=== PATIENT | male | born 1950 | race Caucasian/White ===

== ENCOUNTER 2017-05-05 09:50 | Emergency (ER) | payer MEDICAID ==
[2017-05-05] MEDS ORDERED: ONDANSETRON 4 MG/2 ML VIAL ONE (09:55)
[2017-05-05] MEDS ORDERED: ONDANSETRON 4 MG/2 ML VIAL IVP ONE (09:56)
[2017-05-05] MEDS ORDERED: NS 1,000 ML IV ONE (10:00)
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
[2017-05-05] MEDS ORDERED: fentaNYL 100 MCG/2 ML INJ ONE (10:13)
[2017-05-05 10:18] LABS: % IMMATURE GRANULYOCYTES 0.2 % (0.0-1.1); ABSOLUTE IMMATURE GRANULOCYTES 0.01 10^3/uL (0.00-0.10); ADD DIFF? NO; ADD MORPH? NO; ADD SCAN? NO; ATYPICAL LYMPHOCYTE FLAG 30 (0-99); FRAGMENT RBC FLAG 0 (0-99); HEMATOCRIT 42.1 % (40.0-51.0); HEMOGLOBIN 14.4 g/dL (13.7-17.5); LEFT SHIFT FLG 0 (0-99); LIPEMIA HEMOLYSIS FLAG 90 (0-99); MEAN CELL HEMOGLOBIN 33.1 pg (27.9-34.1); MEAN CELL HEMOGLOBIN CONCENTR. 34.2 g/dL (32.4-36.7); MEAN CELL VOLUME 96.8 fL (81.5-99.8); MEAN PLATELET VOLUME 9.9 fL (8.7-11.7); PLATELET CLUMPS FLAG 0 (0-99); PLATELET COUNT 245 10^3/uL (150-400); RED BLOOD CELL COUNT 4.35 10^6/uL (4.40-6.38); RED CELL DISTRIBUTION WIDTH 13.7 % (11.5-15.2)
[2017-05-05] MEDS ORDERED: fentaNYL 100 MCG/2 ML INJ IVP ONE (10:25)
[2017-05-05 10:29] LABS: APTT 24.9 SEC (23.0-38.0); INR 1.02 (0.83-1.16); PROTIME(PATIENT) 13.3 SEC (12.0-15.0)
[2017-05-05 10:32] LABS: ANION GAP 11 mEq/L (8-16); CALCIUM 9.6 mg/dL (8.5-10.4); CARBON DIOXIDE 28 mEq/l (22-31); CHLORIDE 102 mEq/L (97-110); ETHANOL SERUM < 10 mg/dL (0-10); GLOMERULAR FILTRATION RATE > 60; GLUCOSE 83 mg/dL (70-100); POTASSIUM 4.2 mEq/L (3.5-5.2); SODIUM 141 mEq/L (134-144)
[2017-05-05] MEDS ORDERED: ceFAZolin 2 GM/DEXTROSE 100 ML IV ONE (10:44)
[2017-05-05] MEDS ORDERED: TDAP ADULT 0.5 ML INJ (BOOSTRIX) IM ONE (10:45)
[2017-05-05] MEDS ORDERED: [UNRECOGNIZED DRUG - OTHER] IM ONE (10:45)
[2017-05-05] MEDS ORDERED: PNEUMOCOCCAL 0.5ML VACCINE VIAL IM ONE (10:45)
[2017-05-05] MEDS ORDERED: HAEMOPH B POLY CONJ-TET TOX/PF 0.5 ML VIAL IM ONE (10:45)
[2017-05-05] MEDS ORDERED: SKIN ADHESIVE (DERMABOND) 1 EACH TP ONE (10:55)
--- NOTE | 2017-05-05 11:02 | CPEKG ---
Heart Rate: 56 RR Interval: 1071 P-R Interval: 204 QRSD Interval: 118 QT Interval: 416 QTC Interval: 402 P Climax: 73 QRS Climax: 49 T Wave Climax: 50 EKG Severity - ABNORMAL ECG - EKG Impression: SINUS RHYTHM EKG Impression: NONSPECIFIC INTRAVENTRICULAR CONDUCTION DELAY Electronically Signed By: Chava Cunningham 05-May-2017 11:49:04
[2017-05-05] MEDS ORDERED: MENINGOCOCCAL 4 MCG/0.5 ML VIAL (MENACTRA) IM ONE (11:30)
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
[2017-05-05] MEDS ORDERED: IBUPROFEN 600 MG TAB PO ONE ×2 (12:35→12:38)
[2017-05-05 12:58] VITALS: BP 154/91; PULSE 60; RESP 16; TEMP 98.2; O2SAT 96
== END 2017-05-05 12:56 | disposition home or self-care (01) ==
LOC: EDUNIT#
PROC: 0HQ1XZZ Repair Face Skin, External Approach (ICD-10-PCS; principal; 2017-05-05)
DX: S02.40FA Zygomatic fracture, left side, initial encounter for closed fracture (principal); S01.112A Laceration without foreign body of left eyelid and periocular area, initial encounter; E86.9 Volume depletion, unspecified; Z23 Encounter for immunization; Z87.891 Personal history of nicotine dependence; V18.4XXA Pedal cycle driver injured in noncollision transport accident in traffic accident, initial encounter
CPT/HCPCS: 82947-QW; 96365; G0480; J0690; J2405; J3010

== ENCOUNTER 2018-03-22 16:49 | Inpatient (IN) | payer OTHER, MEDICAID ==
--- NOTE | 2018-03-22 17:07 | EDPHY ---
H & P Stated Complaint: L facial swelling Time Seen by Provider: 03/22/18 17:06 HPI/ROS: CHIEF COMPLAINT: Facial swelling HISTORY OF PRESENT ILLNESS: The patient presents to the ED with left facial swelling not improved after amoxicillin. The patient reportedly developed his symptoms 5-6 days ago. He saw his dentist on Tuesday who prescribed penicillin VK for possible odontogenic infection. He was seen today at his primary care provider's office and referred to the ED for further evaluation. The patient denies any headache, acute numbness or weakness. 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 REVIEW OF SYSTEMS: A comprehensive 10 point review of systems is otherwise negative aside from elements mentioned in the history of present illness. Source: Patient Exam Limitations: No limitations - Personal History Current Tetanus/Diphtheria Vaccine: Unsure Current Tetanus Diphtheria and Acellular Pertussis (TDAP): Unsure - Medical/Surgical History Hx Asthma: No Hx Chronic Respiratory Disease: No Hx Diabetes: No Hx Cardiac Disease: No Hx Renal Disease: No Hx Cirrhosis: No Hx Alcoholism: No Hx HIV/AIDS: No Hx Splenectomy or Spleen Trauma: Yes Other PMH: traumatic brain injury, - Social History Smoking Status: Former smoker - Physical Exam Exam: General Appearance: Alert, no distress Head: Normocephalic, facial swelling over the left parotid gland Eyes: Pupils equal and round no pallor or injection ENT, Mouth: Mucous membranes moist, trismus noted, the patient's left mandibular molars and premolars are absent. Small area of erythema and tenderness noted posterior to left mandibular canine Respiratory: There are no retractions, lungs are clear to auscultation Cardiovascular: Regular rate and rhythm Gastrointestinal: Abdomen is soft and nontender, no masses, bowel sounds normal Neurological: A&O, normal motor function, normal sensory exam, normal cranial nerves Skin: Warm and dry, no rashes Musculoskeletal: Neck is supple nontender Extremities: symmetrical, full range of motion Constitutional: Initial Vital Signs Temperature (C) 36.9 C 03/22/18 16:56 Heart Rate 83 03/22/18 16:56 Respiratory Rate 16 03/22/18 16:56 Blood Pressure 115/80 03/22/18 16:56 O2 Sat (%) 93 03/22/18 16:56 O2 Delivery Mode Room Air Allergies/Adverse Reactions: No Known Allergies Allergy (Verified 03/22/18 16:55) Home Medications: Medication Instructions Recorded No Medications [NO HOME 0 ea [facility] [place] MEDICATIONS] Penicillin VK 03/22/18 Medical Decision Making - Diagnostics Imaging Results: Imaging Impressions Face CT 03/22/18 17:29 Impression: 1. Longitudinal fluid collection tracking along the anterior surface of the left mandibular body, and extending superiorly into the anterior aspect of the left masseter muscle, imaging features compatible with abscess. There is focal bone resorption around the roots of the left 4th incisor potentially related to tooth abscess. 2. A 10-mm calculus present deep to the right mandible potentially related to submandibular duct calculus. Results called to Shaun Shepherd M.D., at 6:20 p.m. ED Course/Re-evaluation: The patient presents to the ED for evaluation of 5 days of progressive facial swelling. The patient has had most of his left mandibular molars removed. The patient has marked pain, swelling and tenderness with trismus noted in the ED. The patient was taken for CT scan of the face which demonstrates a large facial abscess along the left mandible/masseter muscle. The patient had an IV established. He received 3 g of Unasyn. Consultation was made with Dr. Reilly from oral surgery who will evaluate the patient in the ER this evening. The patient will be admitted to the hospitalist service. As discussed the case with Dr. Lua, the on-call hospitalist, who will admit the patient this evening. The patient has been kept NPO in the emergency department. His last p.o. Intake was at 12:00 p.m. today. Differential Diagnosis: Differential diagnosis considered includes facial abscess, parotid gland infection, submandibular abscess, retropharyngeal abscess - Data Points Laboratory Results: Laboratory Results 03/22/18 17:20 03/22/18 03/22/18 17:23 17:20 WBC 11.18 10^3/uL H 10^3/uL (3.80-9.50) RBC 4.44 10^6/uL 10^6/uL (4.40-6.38) Hgb 14.5 g/dL g/dL (13.7-17.5) POC Hgb 16.0 gm/dL gm/dL (13.7-17.5) Hct 40.6 % % (40.0-51.0) POC Hct 47 % % (40-51) MCV 91.4 fL fL (81.5-99.8) MCH 32.7 pg pg (27.9-34.1) MCHC 35.7 g/dL g/dL (32.4-36.7) RDW 13.5 % % (11.5-15.2) Plt Count 221 10^3/uL 10^3/uL (150-400) MPV 10.3 fL fL (8.7-11.7) Neut % (Auto) 79.8 % H % (39.3-74.2) Lymph % (Auto) 8.1 % L % (15.0-45.0) [place] % (Auto) 10.5 % % (4.5-13.0) Eos % (Auto) 0.7 % % (0.6-7.6) Baso % (Auto) 0.4 % % (0.3-1.7) Nucleat RBC Rel Count 0.0 % % (0.0-0.2) Absolute Neuts (auto) 8.93 10^3/uL H 10^3/uL (1.70-6.50) Absolute Lymphs (auto) 0.90 10^3/uL L 10^3/uL (1.00-3.00) Absolute Monos (auto) 1.17 10^3/uL H 10^3/uL (0.30-0.80) Absolute Eos (auto) 0.08 10^3/uL 10^3/uL (0.03-0.40) Absolute Basos (auto) 0.04 10^3/uL 10^3/uL (0.02-0.10) Absolute Nucleated RBC 0.00 10^3/uL 10^3/uL (0-0.01) Immature Gran % 0.5 % % (0.0-1.1) Immature Gran # 0.06 10^3/uL 10^3/uL (0.00-0.10) POC Sodium 132 mEq/L L mEq/L (135-145) POC Potassium 4.4 mEq/L mEq/L (3.3-5.0) POC Chloride 99 mEq/L mEq/L (97-110) POC BUN 25 mg/dL H mg/dL (7-23) POC Creatinine 0.9 mg/dL mg/dL (0.7-1.3) POC Glucose 108 mg/dL H mg/dL (70-100) Medications Given: Discontinued Medications Sodium Chloride (Ns) 1,000 mls @ 0 mls/hr IV EDNOW ONE; Wide Open PRN Reason: Protocol Stop: 03/22/18 17:13 Last Admin: 03/22/18 17:17 Dose: 1,000 mls Point of Care Test Results: Chemistry 03/22/18 17:23 POC Sodium 132 mEq/L L mEq/L (135-145) POC Potassium 4.4 mEq/L mEq/L (3.3-5.0) POC Chloride 99 mEq/L mEq/L (97-110) POC BUN 25 mg/dL H mg/dL (7-23) POC Creatinine 0.9 mg/dL mg/dL (0.7-1.3) POC Glucose 108 mg/dL H mg/dL (70-100) ISTAT H&H 03/22/18 17:23 POC Hgb 16.0 gm/dL gm/dL (13.7-17.5) POC Hct 47 % % (40-51) Departure - Departure Disposition: Home, Routine, Self-Care Clinical Impression: Facial abscess Condition: Good
[2018-03-22] MEDS ORDERED: NS 1,000 ML IV ONE (17:12)
[2018-03-22 17:28] LABS: PLATELET COUNT 221 10^3/uL (150-400)
[2018-03-22] MEDS ORDERED: IOPAMIDOL (ISOVUE-300) 100 ML BTL ONE (17:39)
[2018-03-22] MEDS ORDERED: AMPICILLIN/SULBACTAM 3 GM in NS 100 ML IV ONE (18:23)
[2018-03-22] MEDS ORDERED: ONDANSETRON 4 MG/2 ML VIAL IVP PRN (18:47)
[2018-03-22] MEDS ORDERED: ONDANSETRON DISINTEGRATING 4 MG TAB PO PRN (18:47)
[2018-03-22] MEDS ORDERED: oxyCODONE IR 5 MG TAB PO PRN (18:47)
[2018-03-22] MEDS ORDERED: ACETAMINOPHEN 325 MG TAB PO PRN (18:47)
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
[2018-03-22] MEDS: NS 1,000 ML IV SCH (21:36)
[2018-03-22] MEDS: AMPICILLIN/SULBACTAM 3 GM in NS 100 ML IV SCH (23:12)
[2018-03-23] MEDS: AMPICILLIN/SULBACTAM 3 GM in NS 100 ML IV SCH ×4 (05:07→23:56)
[2018-03-23] MEDS: NS 1,000 ML IV SCH (06:04)
[2018-03-23] MEDS ORDERED: LIDOCAINE 1% 2 ML INJ ID PRN (06:19)
[2018-03-23] MEDS ORDERED: LR 1,000 ML IV ONE (06:19)
[2018-03-23] MEDS ORDERED: BACITRACIN ZINC 14.2 GM OINTTUBE TP ONE (07:00)
[2018-03-23] MEDS ORDERED: MIDAZOLAM 2 MG/2 ML VIAL IVP ONE (07:14)
--- NOTE | 2018-03-23 07:16 | PDHPUP ---
History & Physical Update H&P update statement: This history and physical update is based on an assessment of the patient which was completed after admission or registration (within 24 hours), but prior to the surgery/procedure. H&P update: H&P reviewed & patient examined H&P changes: no changes
--- NOTE | 2018-03-23 07:17 | PDANEPAE ---
ANE History of Present Illness Left lower tooth extraction ANE Past Medical History - Cardiovascular History Hx Hypertension: No Hx Arrhythmias: No Hx Chest Pain: No Hx Coronary Artery / Peripheral Vascular Disease: No Hx CHF / Valvular Disease: No Hx Palpitations: No - Pulmonary History Hx COPD: No Hx Asthma/Reactive Airway Disease: No Hx Oxygen in Use at Home: No Hx Sleep Apnea: No Sleep Apnea Screening Result - Last Documented: Negative - Endocrine History Hx Diabetes: No - Chronic Pain History Chronic Pain: No ANE Review of Systems Review of Systems: - Exercise capacity METS (RN): 4 METS ANE Patient History - Allergies Allergies/Adverse Reactions: No Known Allergies Allergy (Verified 03/22/18 16:55) - Home Medications Home medications: home medication list seen and reviewed Home Medications: Penicillin V Potassium [Pen Vk 500mg (*)] 500 mg PO Q6H 03/22/18 [Last Taken 15:00] - NPO status NPO Status: no food or drink >8 hours NPO Since - Liquids (Date): 03/22/18 NPO Since - Liquids (Time): 12:00 NPO Since - Solids (Date): 03/22/18 NPO Since - Solids (Time): 12:00 - Anes Hx Anes Hx: no prior problems - Smoking Hx Smoking Status: Former smoker Marijuana use: Yes - Alcohol Use Alcohol Use: Occasionally (12-pack of beer/month) - Family Anes Hx Family Anes Hx: none ANE Labs/Vital Signs - Labs Result Diagrams: 03/23/18 04:53 03/23/18 04:53 - Vital Signs Blood Pressure: 110/68 Heart Rate: 74 Respiratory Rate: 18 O2 Sat (%): 93 Height: 187.96 cm Weight: 61.235 kg ANE Physical Exam - Airway Neck exam: decreased ROM Mouth exam: poor dentition - Pulmonary Pulmonary: no respiratory distress, no rales or rhonchi - Cardiovascular Cardiovascular: regular rate and rhythym, no murmur, rub, or gallop - ASA Status ASA Status: II ANE Anesthesia Plan Anesthesia Plan: general endotracheal anesthesia
[2018-03-23] MEDS ORDERED: fentaNYL 100 MCG/2 ML INJ ONE ×3 (07:21→08:42)
[2018-03-23] MEDS ORDERED: PROPOFOL/EMULSION 500 MG/50 ML BOTTLE IV ONE (07:21)
[2018-03-23] MEDS ORDERED: LIDO/EPI 1% **for epidural** 30 ML SDV ONE (07:35)
[2018-03-23] MEDS ORDERED: NEOSTIGMINE METHYLSULFATE 5 MG/5 ML SYR ONE (08:07)
[2018-03-23] MEDS ORDERED: GLYCOPYRROLATE 0.2 MG/1 ML VIAL ONE ×4 (08:07→08:08)
[2018-03-23] MEDS ORDERED: ONDANSETRON 4 MG/2 ML VIAL ONE (08:08)
[2018-03-23] MEDS ORDERED: PHENYLEPHRINE HCL 100 MCG/ML SYR ONE (08:13)
[2018-03-23] MEDS ORDERED: ePHEDrine SULFATE 25 MG/5 ML SYR ONE (08:13)
[2018-03-23] MEDS ORDERED: ALBUTEROL 3 ML DEYVIAL IH PRN (08:30)
[2018-03-23] MEDS ORDERED: HYDROmorphONE/DILAUDID 2 MG/ML INJ IVP PRN (08:30)
[2018-03-23] MEDS ORDERED: fentaNYL 100 MCG/2 ML INJ IVP PRN (08:30)
[2018-03-23] MEDS ORDERED: ONDANSETRON 4 MG/2 ML VIAL IVP PRN (08:30)
[2018-03-23] MEDS ORDERED: NALOXONE HCL 0.4 MG/ML INJ IVP PRN (08:30)
--- NOTE | 2018-03-23 08:31 | POSTANESTH ---
Post Anesthetic Evaluation Cardiovascular Status: Normal, Stable Respiratory Status: Normal, Stable Level of Consciousness/Mental Status: Can Participate in Eval Pain Control: Adequate, Prn Tx Ordered Nausea/Vomiting Control: Adequate, Prn Tx Ordered Complications Possibly Related to Anesthesia: None Noted
--- NOTE | 2018-03-23 08:31 | SOAPPROG ---
SOAP Progress Note Assessment/Plan: S: asked to consult on this gentleman with longstanding swelling of the left side of face. Pain in tooth # 20. Seen in ED- ct scan showed abscess in vestibule and masseteric space. exam : significant swelling on the left side of face, full in vestibule, # 20 fx at gingiva a/p abscess 1) LA with 10 cc 2% lido with 1: 100k epi, introduce #18 guage needle on 10 cc syringe, chikis out 5 cc purulence and sent to lab for C and S, introduce tanya and irrigate out area. 2) NPO tonight and to OR 03/22/2018 IN am to ext #20 and more I an D. 3)Recommend ID consult 4) IV unisyn for now. TN Objective: Vital Signs Temp Pulse Resp BP Pulse Ox 36.8 C 74 18 110/68 93 03/23/18 06:28 03/23/18 07:17 03/23/18 07:17 03/23/18 07:17 03/23/18 07:17 Laboratory Results 03/23/18 04:53 03/23/18 04:53 03/22/18 03/23/18 03/24/18 05:59 05:59 05:59 Intake Total 2944 Balance 2944 ICD10 Worksheet Patient Problems: Problems Problem Status Onset Facial abscess Acute Facial bone fracture Acute Laceration Acute
--- NOTE | 2018-03-23 08:33 | POSTOPPROG ---
Post Op Note Date of Operation: 03/23/18 Surgeon: Yovani Reilly Anesthesia: GET(General Endotracheal) Pre-op Diagnosis: caries #20, abscess left buccal, vestibular Post-op Diagnosis: same Indication: rapid swelling Procedure: ext #20 and I and D of abscess Findings: copious purulence Inf/Abcess present in the surg proc area at time of surgery?: Yes Depth: Deep Incisional (Fascial) EBL: Minimal Total fluids administered: 500 cc Complications: none Drains: Tanya (tanya x2 in mouth)
[2018-03-23] MEDS ORDERED: PNEUMOC 13-VAL CONJ-DIP CRM/PF 0.5 ML SYR IM ONE (09:58)
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
--- NOTE | 2018-03-23 10:22 | GOP ---
DATE OF OPERATION: 03/23/2018 SURGEON: Yovani Reilly DDS ANESTHESIA: General. PREOPERATIVE DIAGNOSIS: odontogenic abscesses, caries #20 POSTOPERATIVE DIAGNOSIS: odontogenic abscesses, caries #20 PROCEDURE PERFORMED: Extraction of tooth #20; incision and drainage of a left vestibular space infection, a left buccal space and masseteric space infection with introduction of [place] drains. FINDINGS: He had purulent discharge in not only the vestibular space but the buccal space and the masseteric space of the left side of the face. SPECIMENS: There were no specimens. INDICATIONS: The patient is a 67-year-old male with longstanding swelling around a tooth that became rapidly increased over the last 72 hours. He presented in the emergency room where a culture of the infection was taken and sent for culture and sensitivities, and a [place] drain was placed. The patient was then taken to the operating room today to extract the tooth and potentially open up any further fascial spaces that were infected. DESCRIPTION OF PROCEDURE: The patient was taken to the operating room where he was placed on the operating room table in a supine position. He was induced under general anesthesia and orotracheally intubated. He was then infiltrated with approximately 15 cc of 2% lidocaine with 1:200,000 epinephrine. An incision was made in the left buccal space through the buccinator with a #15 blade, advancing to a Catalina hemostat. Copious amounts of purulent drainage were noted. The hemostat was then advanced to the masseteric space and noted a small amount of purulent drainage was noted. The previous [place] drain that had been placed in the ER the night before was flushed with copious amounts of saline. Both the new fascial spaces were also flushed with copious amounts of saline and a 1/4-inch [place] was placed in the buccal space extending into the masseteric space. Tooth #20 was then simply extracted. The wound was irrigated and curetted out. The Luis drain was then secured using a 3-0 silk suture. The patient was then turned over to the anesthesia service where he was brought out of general anesthesia and extubated and sent to the PACU in stable condition. DRAINS: There was 1 Luis drain placed in the left buccal space and masseteric space. /[id number]/MODL MTDD
--- NOTE | 2018-03-23 12:07 | ASMTCMCOM ---
CM Note CM Note Notes: Pt admitted yesterday for I&D this morning with oral surgery. Pt lives independently and is anticipated to discharge independently. Pt comfortable with this plan. No CM needs noted at this time. CM available should needs change. D/C Plan: Independent Date Signed: 03/23/2018 12:06 PM Electronically Signed By:Angela Green
--- NOTE | 2018-03-23 17:10 | HOSPPROG ---
Hospitalist Progress Note Assessment/Plan: Assessment: 67-year-old male presents with acute submandibular abscess Plan: 1. Submandibular abscess. Postop day 0 status post incision and drainage at # [address] Wilson -failed outpatient oral antibiotic therapy, failed penicillin prescribed through primary dental office -area remains somewhat tender, pain control with IV and oral medications -get Infectious Disease consultation for guidance in outpatient antibiotic management -continue IV Unasyn while Luis drain continues to drain purulent material -continue Luis drain until absence of drainage -continue monitor Gram stain, currently growing Gram-positive rods, Gram- positive cocci, Gram-negative cocci -monitor fever curve, white blood cell count currently 8000 Diet. Advance today's solids Prophylaxis. Moderate risk patient, Lovenox for Code. Full Disposition. Anticipated discharge uncertain, requiring ongoing antibiotic therapy IV with ongoing Luis drain needed. Subjective: Some ongoing discomfort in his left jaw Objective: Vital Signs Temp Pulse Resp BP Pulse Ox 36.9 C 71 18 96/66 L 94 03/23/18 16:21 03/23/18 16:21 03/23/18 16:21 03/23/18 16:21 03/23/18 16:21 Microbiology 03/22/18 20:30 Gram Stain - Final Mouth - Swab Laboratory Results 03/23/18 04:53 03/23/18 04:53 03/22/18 03/23/18 03/24/18 05:59 05:59 05:59 Intake Total 2944 1000 Output Total 100 Balance 2944 900 - Physical Exam Constitutional: no apparent distress, appears nourished, uncomfortable, No not in pain (Mild left jaw) Eyes: other (Right eye anisocoria and dysconjugate gaze) Ears, Nose, Mouth, Throat: other ([place] drain remains intact within the oral cavity) Cardiovascular: regular rate and rhythym, no murmur, rub, or gallop, No edema Respiratory: no respiratory distress, no rales or rhonchi, clear to auscultation Gastrointestinal: normoactive bowel sounds, soft, non-tender abdomen, no palpable masses, No distension Neurologic: AAOx3 Psychiatric: interacting appropriately, not anxious, not encephalopathic, thought process linear ICD10 Worksheet Patient Problems: Problems Problem Status Onset Facial abscess Acute Facial bone fracture Acute Laceration Acute
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
[2018-03-24] MEDS: AMPICILLIN/SULBACTAM 3 GM in NS 100 ML IV SCH ×4 (05:35→23:48)
--- NOTE | 2018-03-24 09:31 | PCMIDPN ---
Assessment/Plan: 1. Odontogenic infection postop day 1 status post extraction of tooth 20/ incision and drainage of left buccal/masseteric abscess: Continues to have some residual swelling, but explained to patient that this is normal, and will take time to improve. Also spoke with the patient's partner, Tammi, on the phone. Continue Unasyn as is. Suspect he may be here over the weekend for intravenous therapy, at which point can transition to oral Augmentin moving forward. 2. Asplenia: Patient received the Prevnar 13. He also received a flu vaccine. Subjective: Worried about the swelling in his left face. Objective: Unasyn 3 g IV q.6 hours day 1 T-max 37 degrees to Vital Signs Temp Pulse Resp BP Pulse Ox 37.1 C 65 16 112/74 91 L 03/24/18 07:22 03/24/18 07:22 03/24/18 07:22 03/24/18 07:22 03/24/18 07:22 Microbiology 03/22/18 20:30 Gram Stain - Final Mouth - Swab Laboratory Results 03/23/18 04:53 03/23/18 04:53 03/23/18 03/24/18 03/25/18 05:59 05:59 05:59 Intake Total 2944 1347 Output Total 1950 600 Balance 2944 -603 -600 Abscess fluid with"mixed oral anthony" Gram stain polymicrobial - Physical Exam General Appearance: other (Sitting on the bed, eating some cottage cheese. No apparent distress. Obvious swelling in his left cheek/submandibular area. This area is nonfluctuant) EENT: other (Extraction site of tooth 20 looks clean a and dry. Luis drain in the inside of his mouth on the left side. No purulence is able to be expressed. Cheek without fluctuance. The area is somewhat woody. He is only able to open his mouth about 40 degrees.) Neck: full range of motion Cardiac/Chest: regular rate, rhythm Skin: No rash ICD10 Worksheet Patient Problems: Problems Problem Status Onset Facial abscess Acute Facial bone fracture Acute Laceration Acute
--- NOTE | 2018-03-24 14:06 | SOAPPROG ---
SOAP Progress Note Assessment/Plan: S: post op day 1 s/p drain abscess in vestibule and masseteric space. exam : swelling on the left side of face, quite decreased since admit. Now firm, cw reactive edema s/p surgery . both drains in place, not productive at this point. # 20 healing well. a/p 1) healing well, swelling cw surgery 2) wbc coming down 3) recommend heat to area to help drain 4) full diet as tolerated. 5) IV unisyn working well, continue per ID consult. 6) will follow while in house. If continues to improve ok to plan on discharge as long as he can follow up with me in my office. Davy Reilly Objective: Vital Signs Temp Pulse Resp BP Pulse Ox 36.8 C 68 16 117/69 92 03/24/18 11:55 03/24/18 11:55 03/24/18 11:55 03/24/18 11:55 03/24/18 11:55 Microbiology 03/22/18 20:30 Gram Stain - Final Mouth - Swab Laboratory Results 03/23/18 04:53 03/23/18 04:53 03/23/18 03/24/18 03/25/18 05:59 05:59 05:59 Intake Total 6333 4688 Output Total 5148 836 Balance 8366 -977 -871 ICD10 Worksheet Patient Problems: Problems Problem Status Onset Facial abscess Acute Facial bone fracture Acute Laceration Acute
--- NOTE | 2018-03-24 15:38 | HOSPPROG ---
Hospitalist Progress Note Assessment/Plan: Assessment: 67-year-old male presents with acute buccal/masseteric/ submandibular abscess Plan: 1. Submandibular/buccal/masseter abscess. Postop day 1 status post incision and drainage at #[address] Reilly -failed outpatient oral antibiotic therapy (failed penicillin prescribed through primary dental office) -area w/ increased edema/induration today, counseled patient that all his providers are collaborating on current care -d/w Drs. Gamez and Tommie, we all agree that ongoing IV Abx indicated and plan to transition to Augmentin when seems clinically resolving -per Dr. Reilly, increase in swelling likely reactive edema from the surgery , would not recommend imaging at this juncture, and he will round on patient this weekend to reassess -continue IV Unasyn -continue [place] drain until absence of drainage -continue monitor Gram stain, currently growing Gram-positive rods, Gram- positive cocci, Gram-negative cocci -repeat WBC in AM Diet. Reg as bela Prophylaxis. Moderate risk patient, Lovenox 40 Code. Full Disposition. Anticipated discharge uncertain, requiring ongoing antibiotic therapy IV with ongoing [place] drain needed. Subjective: increased L facial swelling Objective: Vital Signs Temp Pulse Resp BP Pulse Ox 36.8 C 68 16 117/69 92 03/24/18 11:55 03/24/18 11:55 03/24/18 11:55 03/24/18 11:55 03/24/18 11:55 Microbiology 03/22/18 20:30 Gram Stain - Final Mouth - Swab Laboratory Results 03/23/18 04:53 03/23/18 04:53 03/23/18 03/24/18 03/25/18 05:59 05:59 05:59 Intake Total 6155 2057 Output Total 3600 278 Balance 7541 -798 -016 - Time Spent With Patient Time Spent with Patient: greater than 35 minutes Time Spent with Patient: Greater than 35 minutes spent on this patients care, greater than 50% of time spent counseling, educating, and coordinating care regarding the above mentioned plan. - Physical Exam Constitutional: no apparent distress, chronically ill appearing, uncomfortable, No not in pain (mild) Eyes: other (disconjugate gaze, R anisocoria) Ears, Nose, Mouth, Throat: other (L mandibular tanya drain in place, appears open w/o surrounding erythema) Cardiovascular: regular rate and rhythym, no murmur, rub, or gallop Respiratory: no respiratory distress, no rales or rhonchi, clear to auscultation Gastrointestinal: normoactive bowel sounds, soft, non-tender abdomen, no palpable masses Skin: other (not cellulitic appearing, but area is indurated and tender, not fluctuant, L mandible) Musculoskeletal: other (full ROM neck w/o significant pain) Neurologic: AAOx3 Psychiatric: interacting appropriately, not anxious, not encephalopathic, thought process linear ICD10 Worksheet Patient Problems: Problems Problem Status Onset Facial abscess Acute Facial bone fracture Acute Laceration Acute
[2018-03-24] MEDS: ENOXAPARIN 40 MG/0.4 ML SYR SC SCH (17:59)
[2018-03-25] MEDS: AMPICILLIN/SULBACTAM 3 GM in NS 100 ML IV SCH (06:06)
[2018-03-25 06:07] LABS: PLATELET COUNT 272 10^3/uL (150-400)
[2018-03-25 08:51] VITALS: BP 127/77
[2018-03-25] MEDS: ENOXAPARIN 40 MG/0.4 ML SYR SC SCH (09:26)
--- NOTE | 2018-03-25 09:32 | SOAPPROG ---
SOAP Progress Note Assessment/Plan: S: post op day 2 s/p drain abscess in vestibule and masseteric space. " I feel a LOT better- I think one of the drains came loose" exam : decrease swelling on the left side of face, residual swelling looks like just reactive edema from surgery. No flutuance at all. Drain in buccal space non productive and loose, drain in massteric space non productive even with pressure on side of face. . # 20 healing well. WBC down to 5.8 ( from 11.8 at admit) no fevers or chills. a/p 1) healing well, swelling cw surgery 2) wbc coming down 3) recommend heat to area to help drain 4) full diet as tolerated. 5) His residence is walking distance to my office. I think from my standpoint it is ok to send him home with the second drain in place and have him follow up with me in my office on tuesday to remove drain. Spoke with Dr. Anders with infectious disease and he is ok with this - recommend Augmentin 875 BID x 10 days on discharge. 6) he will need to call my office at [phone] to schedule follow up tuesday PM Davy Reilly [phone](c) 03-25-2018 Objective: Vital Signs Temp Pulse Resp BP Pulse Ox 36.8 C 64 12 127/77 H 93 03/25/18 08:00 03/25/18 08:00 03/25/18 08:00 03/25/18 08:00 03/25/18 08:00 Microbiology 03/22/18 20:30 Gram Stain - Final Mouth - Swab Laboratory Results 03/25/18 05:15 03/23/18 04:53 03/24/18 03/25/18 03/26/18 05:59 05:59 05:59 Intake Total 1347 150 Output Total 5797 2079 Msgtjzt -492 -826 ICD10 Worksheet Patient Problems: Problems Problem Status Onset Facial abscess Acute Facial bone fracture Acute Laceration Acute
--- NOTE | 2018-03-25 10:35 | ASMTLACE ---
LACE Length of stay for Answers: 2 days current admission Acuity / Level of Answers: Yes Care: Did the patient have an inpatient admission? Comorbidities - select Answers: Other Notes: TBI all that apply # of Emergency department Answers: 1-2 visits in the last 6 months Score: 7 Date Signed: 03/25/2018 10:34 AM Electronically Signed By:April Knott RN
--- NOTE | 2018-03-25 10:38 | ASDISCHSUM ---
Discharge Information Plan Status:Home with No Needs Medically Cleared to Leave:03/25/2018 Discharge Date:03/25/2018 CM D/C Disposition:Home, Routine, Self-Care ADT D/C Disposition:Home, Routine, Self-Care Projected Discharge Date:03/25/2018 12:00 AM Transportation at D/C:Family Discharge Delay Reason: Follow-Up Date:03/25/2018 12:00 AM Discharge Slot: Final Diagnosis: Placement Information Patient Contact Information Contact Name:FERNANDO Relationship:Sister Address: Work Phone: City:[place] Alternate Phone: [facility]/In*Situ Architecture Code:JEAN Email: Financial Information Financial Class:Medicare Primary Plan Desc:MEDICARE IP PART B ONLY Primary Plan Number:[id number] Secondary Plan Desc:[employer] [place] Secondary Plan Number:[id number] Assessment Information [facility] CM Progress Note CM Note CM Note Notes: Pt admitted yesterday for I&D this morning with oral surgery. Pt lives independently and is anticipated to discharge independently. Pt comfortable with this plan. No CM needs noted at this time. CM available should needs change. D/C Plan: Independent Date Signed: 03/23/2018 12:06 PM Electronically Signed By:Angela Green LACE LACE Length of stay for Answers: 2 days current admission Acuity / Level of Answers: Yes Care: Did the patient have an inpatient admission? Comorbidities - select Answers: Other Notes: TBI all that apply # of Emergency department Answers: 1-2 visits in the last 6 months Score: 7 Date Signed: 03/25/2018 10:34 AM Electronically Signed By:April Knott, RN Case Management Discharge Plan Note Case Management Discharge Discharge Order Complete? Answers: Yes Patient to Obtain Answers: Independently Medications Transportation Arranged Answers: Family/Friends Discharge Comments Notes: 03/25/2018 Case Management Note Pt to discharge without any needs from case management. No therapy evals were ordered. Case Management d/c poc: independent with follow up as directed. Date Signed: 03/25/2018 10:37 AM Electronically Signed By:April Knott RN Intervention Information
--- NOTE | 2018-03-25 13:04 | GDS ---
DISCHARGE DIAGNOSES: Submandibular buccal abscess. PHYSICAL EXAM: GENERAL: The patient is alert. VITAL SIGNS: Afebrile at 36.8, pulse is 64, respira tory rate is 12. Blood pressure is 127/77. He is saturating 93% on room air. I have seen and evalu ated the patient on the day of discharge. HOSPITAL COURSE: The patient is a 67-year-old male who presented to the emergency room after failing outpatient antibiotic therapy for a submandibular buccal abscess. During this hospitalization, he d id receive a consultation from Dr. Reilly. Incision and drainage was performed, and the patient w as started on IV antibiotic therapy. Infectious Disease was consulted. The patient's condition has significantly improved. He is able to tolerate oral intake. He has been transitioned to oral antibi otics, Augmentin 875 twice daily for a total of 10 days. He will follow up with Dr. Reilly on 06/2017, as well as his primary care physician, Dr. Mary Kay Camilo. I have reviewed the patient's di sposition with Dr. Adners of Infectious Disease as well as Dr. Reilly. They are both in agreement w ith this plan. I spent greater than 35 minutes in the care, coordination, and management of the patient's dispositio n. DISCHARGE MEDICATIONS: Please refer to EMR form. A prescription for Augmentin 875 twice daily #20 h as been prescribed for the patient prior to disposition. /[id number]/MODL
== END 2018-03-25 13:03 | disposition home or self-care (01) | DRG 138 ==
LOC: F3E 20:37
PROVIDERS: ADMIT Internal Medicine; ATTEND Internal Medicine
PROC: 0CDXXZ0 Extraction of Lower Tooth, Single, External Approach (ICD-10-PCS; principal; 2018-03-23 07:15)
PROC: 0C9400Z Drainage of Buccal Mucosa with Drainage Device, Open Approach (ICD-10-PCS; principal; 2018-03-23 07:15)
DX: K12.2 Cellulitis and abscess of mouth (principal); K04.7 Periapical abscess without sinus; K02.9 Dental caries, unspecified; Z90.81 Acquired absence of spleen; Z87.820 Personal history of traumatic brain injury; Z87.891 Personal history of nicotine dependence; Z23 Encounter for immunization
CPT/HCPCS: 82435-PO; 82565-PO; 82947-PO; 84132-PO; 84295-PO; 84520-PO; 85014-PO; G0008; G0009; J0295; J1650; J2250; J2370; J2405; J2704; J2710; J3010; Q9967